=== PATIENT | male | born 1990 | race Caucasian/White ===

== ENCOUNTER 2024-08-20 17:17 | Emergency (ER) | payer SELFPAY ==
[2024-08-20 17:26] VITALS: BP 111/59; PULSE 70; RESP 20; TEMP 98.6; BMI 28.1
[2024-08-20] MEDS ORDERED: BACITRACIN ZINC 15 GM TUBE TOPICAL OINTMENT ONE (18:43)
[2024-08-20] MEDS: BACITRACIN ZINC 15 GM TUBE TOPICAL OINTMENT TP ONE (18:47)
[2024-08-20] MEDS ORDERED: DIPHTH,PERTUSS(ACELL),TET 0.5 ML DISP.SYRIN IM ONE (18:58)
[2024-08-20] MEDS: DIPHTH,PERTUSS(ACELL),TET 0.5 ML DISP.SYRIN IM ONE (19:02)
== END 2024-08-20 19:20 | disposition home or self-care (01) ==
LOC: JER 17:17
PROC: 3E0234Z Introduction of Serum, Toxoid and Vaccine into Muscle, Percutaneous Approach (ICD-10-PCS; principal; 2024-08-20)
DX: T24.231A Burn of second degree of right lower leg, initial encounter (principal); T25.221A Burn of second degree of right foot, initial encounter; Z23 Encounter for immunization; X12.XXXA Contact with other hot fluids, initial encounter; Y99.0 Civilian activity done for income or pay
CPT/HCPCS: 90715; 99284-25